=== PATIENT | male | born 2000 | race Caucasian/White ===

== ENCOUNTER 2022-09-15 13:11 | Emergency (ER) | payer OTHER, SELFPAY ==
[2022-09-15 13:32] VITALS: BP 122/97; PULSE 105; RESP 18; TEMP 38.1; O2SAT 100
--- NOTE | 2022-09-15 13:37 | ED.URI ---
HPI - URI/Sore Throat General Chief Complaint: Upper Respiratory Infection Stated Complaint: Sore Throat,Fever,BodyAches Time Seen by Provider: 09/15/22 13:37 Source: patient Mode of arrival: ambulatory Limitations: no limitations History of Present Illness HPI Narrative: 22-year-old male presents with complaint of body aches, headache, fever, fatigue since last night. Denies nausea vomiting diarrhea. No chest pain or shortness of breath. All systems reviewed and negative except as noted above. Related Data Allergies Allergy/AdvReac Type Severity Reaction Status Date / Time No Known Allergies Allergy Unverified 07/09/19 13:53 Review of Systems Review of Systems: CONSTITUTIONAL: Reports fever, chills, or sweats. EYES: Denies visual changes, redness, or discharge. ENT: Denies rhinorrhea, congestion, sore throat, or otalgia. CARDIOVASCULAR: Denies chest pain, palpitations, or edema. RESPIRATORY: Denies cough or dyspnea. GASTROINTESTINAL: Denies abdominal pain, nausea, vomiting, or diarrhea. GENITOURINARY: Denies dysuria or hematuria. SKIN: Denies rash or itching. MUSCULOSKELETAL: Denies back pain, joint pain. Reports myalgia. NEUROLOGIC: reports headache. Denies numbness, or weakness. PSYCHIATRIC: Denies anxiety or depression. All other systems reviewed are negative, except as documented in HPI. PMFSH Comments At time of signature, agree with nursing past medical, surgical, social and family history. There is no relevant family history pertinent to the presenting complaint. Exam Narrative: GENERAL: This is a well-nourished, well-developed patient. Patient ill-appearing but no distress. HEAD: normocephalic, atraumatic. EYES: PERRL. Sclera clear/white. Vision is grossly intact. EARS: External ears normal, auditory canals clear and without drainage, TMs normal without perforation. Hearing grossly intact. NOSE: External nose normal with no obvious nasal discharge, nares without redness, no rhinorrhea. THROAT: Mucous membranes moist, posterior pharynx clear. NECK: Neck supple, non-tender without lymphadenopathy, masses or thyromegaly. CARDIOVASCULAR: Regular rate and rhythm without murmurs, gallops, or rubs. RESPIRATORY: Clear to auscultation. Breath sounds equal bilaterally. No wheezes, rales, or rhonchi. SKIN: warm, Dry, intact with no suspicious lesions or rash, good texture and turgor. NEURO: awake, alert, and oriented to person, place and time. There were no obvious focal neurologic abnormalities. EXTREMITIES: No joint tenderness, effusion, or edema noted. Course Course Level of Care: Express Care Visit Vital Signs Vital signs: Vital Signs Temperature 38.1 C H 09/15/22 13:32 Pulse Rate 105 H 09/15/22 13:32 Respiratory Rate 18 09/15/22 13:32 Blood Pressure 122/97 H 09/15/22 13:32 Pulse Oximetry 100 09/15/22 13:32 Oxygen Delivery Room Air 09/15/22 13:32 Temperature 38.1 C H 09/15/22 13:32 Pulse Rate 105 H 09/15/22 13:32 Respiratory Rate 18 09/15/22 13:32 Blood Pressure 122/97 H 09/15/22 13:32 Pulse Oximetry 100 09/15/22 13:32 Oxygen Delivery Room Air 09/15/22 13:32 Reviewed. Offered antipyretic at [facility] but the patient stated would take when he got home. MDM - URI/Sore Throat MDM Narrative Medical decision making narrative: Patient is aware of diagnosis, understands and agrees to treatment plan. Anticipatory guidance given. Patient agrees to follow-up as directed and is aware of reasons to seek care at the emergency department. Portions of this record may have been created with voice recognition software Differential Diagnosis Differential diagnosis: Likely upper respiratory infection, viral infection and influenza Lab Data Labs: Influenza A Screen Positive Reference Range: Negative Influenza B Screen Negative Reference Range:
== END 2022-09-15 13:52 | disposition home or self-care (01) ==
PROVIDERS: Emergency Provider Nurse Practitioner Family; PCP Physician Assistant
DX: J10.1 Influenza due to other identified influenza virus with other respiratory manifestations (principal)
CPT/HCPCS: 87081; 87804; 87880; 99213; G0463

== ENCOUNTER 2023-11-02 14:57 | Emergency (ER) | payer OTHER, SELFPAY ==
--- NOTE | ~2023-11-02 | CT_ITS ---
EXAMINATION: CT abdomen pelvis w con DATE: 11/02/2023 19:27 INDICATION: Epigastric tenderness TECHNIQUE: Computed tomography (CT) of the abdomen and pelvis was performed with 100 mL Omnipaque-350 intravenous contrast. Automated exposure control and iterative reconstruction technique were employe d. The dose-length product was 722.98 mGy-cm. COMPARISON: None. FINDINGS: Lower thorax: Unremarkable Liver: Normal. Biliary/Gallbladder: Gallbladder is normal. No bile duct dilation. Pancreas: No mass or duct dilation. Spleen: Normal. Adrenals:No mass. Kidneys: No suspicious mass, obstructing stone, or hydronephrosis. GI tract: Very mild distal esophageal and gastric wall edema. No small or large bowel dilation. Loli l appendix. Mesentery/Peritoneum: No ascites, mass, or free air. Retroperitoneum: No mass. Pelvis: Pelvic organs are within normal limits. Soft Tissues: Soft tissues and body wall unremarkable. Bones: No acute osseous finding. IMPRESSION: Mild esophagitis/gastritis. Reviewed, dictated and finalized at location [facility] IMPRESSION: Mild esophagitis/gastritis.
[2023-11-02 15:06] VITALS: BP 150/80; PULSE 87; RESP 17; TEMP 36.7; O2SAT 98
--- NOTE | 2023-11-02 18:05 | ED.GENADULT ---
HPI - General Adult General Chief complaint: Abdominal Pain Stated complaint: BLACK DIARRHEA STOOLS, ABDOMEN PAIN Time Seen by Provider: 11/02/23 17:30 Source: patient Mode of arrival: ambulatory Limitations: no limitations History of Present Illness HPI narrative: This is a 23-year-old male who presents to the ED with chief complaint of upper and generalized abdominal cramping to accompanied by black tar diarrhea for the past 3 days. Reports that this seemed to start after eating [employer] but symptoms have not really improved. Reports pain 2/10 at this time but significantly worse with the eating. Denies fevers, chills, vomiting, chest pain, shortness of breath, urinary problems. Related Data Allergies Allergy/AdvReac Type Severity Reaction Status Date / Time No Known Allergies Allergy Unverified 11/02/23 14:58 Review of Systems Review of Systems: All systems as dictated in HPI Exam Narrative: GENERAL: Well-appearing, well-nourished, and in no acute distress. HEAD: Normocephalic, atraumatic. EYES: PERRLA and EOMI. ENT: Nares clear, no rhinorrhea or epistaxis. Mucous membranes moist. Oropharynx without tonsillar hypertrophy exudate or other lesions. NECK: Supple. No adenopathy or masses. CHEST: No respiratory distress. Clear to auscultation. No wheezes rales or rhonchi HEART: Regular rate and rhythm. No murmur heard. Normal peripheral pulses. ABDOMEN: Mildly tender epigastrium. soft, otherwise nontender, nondistended, normal active bowel sounds. MSK: Normal range of motion. No edema. SKIN: Warm, dry, no rash. NEURO: Alert and oriented x3. No focal deficits. PSYCH: Normal mood and affect. Rectal exam performed with nurse tech string cutter present: Guaiac test negative. No external lesions. No swelling. No tenderness Course Vital Signs Vital signs: Vital Signs Temperature 98.1 F 11/02/23 15:06 Pulse Rate 87 11/02/23 15:06 Respiratory Rate 17 11/02/23 15:06 Blood Pressure 150/80 H 11/02/23 15:06 Pulse Oximetry 98 11/02/23 15:06 Oxygen Delivery Room Air 11/02/23 15:06 Temperature 98.1 F 11/02/23 15:06 Pulse Rate 84 11/02/23 20:10 Respiratory Rate 16 11/02/23 20:10 Blood Pressure 128/86 11/02/23 20:18 Pulse Oximetry 98 11/02/23 20:10 Oxygen Delivery Room Air 11/02/23 15:06 Medical Decision Making [facility] Narrative Medical decision making narrative: This is a 23-year-old male who presents to the ED with chief complaint of upper and lower abdominal cramping completed by Dr. Sorenson with. Seem to start after eating fast food recently. Vitals are normal. Exam shows mild epigastric tenderness. Lab work is grossly unremarkable. Negative lipase. Urinalysis shows 2+ ketones but otherwise intact. Rectal exam shows a negative guaiac test. CT abdomen: Mild esophagitis/gastritis. . Symptoms consistent with gastritis. omeprazole prescription given. GI referral given. We discussed that the bleeding has probably resolved. Return precautions discussed as well. Patient is understanding and agreeable plan for discharge follow-up with specialist/PCP. Vital Signs Vital Signs: Vital Signs Temperature 98.1 F 11/02/23 15:06 Pulse Rate 87 11/02/23 15:06 Respiratory Rate 17 11/02/23 15:06 Blood Pressure 150/80 H 11/02/23 15:06 Pulse Oximetry 98 11/02/23 15:06 Oxygen Delivery Room Air 11/02/23 15:06 Temperature 98.1 F 11/02/23 15:06 Pulse Rate 84 11/02/23 20:10 Respiratory Rate 16 11/02/23 20:10 Blood Pressure 128/86 11/02/23 20:18 Pulse Oximetry 98 11/02/23 20:10 Oxygen Delivery Room Air 11/02/23 15:06 Lab Data 11/02/23 18:24 11/02/23 18:24 Labs: Lab Results 11/02/23 11/02/23 Range/Units 18:24 19:05 WBC 7.8 (4.5-10.0) K/mm3 RBC 5.41 (4.6-6.20) M/mm3 Hgb 15.9 (14.0-18.0) g/dL Hct 47.8 (42.0-52.0) % MCV 88.4 (80-100) fl MCH 29.4 (26-34) pg MCHC 33.3 (32
[2023-11-02 18:43] LABS: Basophils Percent Auto 0.3 % (0.2-1.2); Eosinophils Absolute Auto 0.1 K/mm3 (0-0.3); Eosinophils Percent Auto 0.8 % (0-4.4); Hematocrit 47.8 % (42.0-52.0); Hemoglobin 15.9 g/dL (14.0-18.0); Immature Granulocyte Absolute 0.02 K/mm3 (0.00-0.031); Immature Granulocyte Percent A 0.3 % (0-0.5); Lymphocytes Absolute Auto 1.47 K/mm3 (0.9-3.2); Lymphocytes Percent Auto 18.8 % (18.3-44.2); Mean Corpuscular HGB Conc 33.3 g/dl (32-36); Mean Corpuscular Hemoglobin 29.4 pg (26-34); Mean Corpuscular Volume 88.4 fl (80-100); Mean Platelet Volume 10.5 fl (7.4-10.4); Monocytes Absolute Auto 0.6 K/mm3 (0.1-0.6); Monocytes Percent Auto 7.9 % (2.6-8.5); Neutrophils Absolute Auto 5.7 K/mm3 (1.3-6.7); Neutrophils Percent Auto 71.9 % (45.5-73.1); Platelet Count Result 177 k/mm3 (150-375); Red Blood Count 5.41 M/mm3 (4.6-6.20); Red Cell Distribution Width 12.6 % (11.5-14.5); White Blood Count 7.8 K/mm3 (4.5-10.0)
[2023-11-02 18:46] LABS: Prothrombin Time 13.7 Seconds (11.1-14.7)
[2023-11-02 18:47] LABS: Partial Thromboplastin Time 25.5 SECONDS (22.3-36.8)
[2023-11-02 18:52] LABS: Lactic Acid Reflex 0.9 mmol/L (0.7-2.0)
[2023-11-02 19:02] LABS: Alanine Aminotransferase 26 U/L (6-50); Albumin Level 4.4 g/dL (3.5-5.1); Alkaline Phosphatase 88 U/L (38-126); Anion Gap 8 mmol/L (8-16); Aspartate Amino Transferase 29 U/L (17-59); Bilirubin,Total 0.5 mg/dL (0.2-1.3); Blood Urea Nitrogen 11 mg/dL (9-20); Calcium 9.2 mg/dL (8.4-10.2); Carbon Dioxide 26 mmol/L (22-30); Chloride 104 mmol/L (98-107); Estimated CRCL calculation 144 ml/min; Estimated Glomerular Filt Rate > 60; Glucose 88 mg/dL (65-110); Lipase 43 U/L (23-300); Potassium 4.4 mmol/L (3.4-5.0); Sodium 138 mmol/L (137-145)
[2023-11-02 19:53] LABS: Appearance Urine Clear (Clear); Bilirubin Urine Negative (Negative); Blood Urine Negative (Negative); Color Urine Yellow (Yellow); Glucose Urine UA Negative (Negative); Ketones Urine 2+ mg/dL (Negative); Leukocyte Esterase Ur Negative LEU/UL (Negative); Nitrate Urine Negative (Negative); Protein Urine Negative (Negative); Specific Grav Ur 1.027 (1.001-1.035); Urobilinogen Urine 0.2 mg/dL (<2.0); pH Urine 5.5 (5.0-9.0)
[2023-11-02 19:57] LABS: Add Urine Microscopic? NO
[2023-11-02 20:10] VITALS: PULSE 84; RESP 16; O2SAT 98
[2023-11-02 20:18] VITALS: BP 128/86
== END 2023-11-02 20:18 | disposition home or self-care (01) ==
PROVIDERS: Emergency Provider Physician Assistant; PCP Physician Assistant
DX: K29.70 Gastritis, unspecified, without bleeding (principal)
CPT/HCPCS: 36415; 74177; 80053; 81003; 82248; 83605; 83690; 85025; 85610; 85730; 99284; Q9967

== ENCOUNTER 2024-10-08 16:08 | Emergency (ER) | payer OTHER, SELFPAY ==
[2024-10-08 16:21] VITALS: BP 151/90; PULSE 78; RESP 16; TEMP 36.8; O2SAT 100
[2024-10-08 16:24] VITALS: BP 151/90; PULSE 78; RESP 16; TEMP 36.8; O2SAT 100
--- NOTE | 2024-10-08 16:46 | ED.SKABFB ---
HPI - Skin/Abscess/Foreign Bdy General Chief complaint: Skin/Abscess/Foreign Body Stated complaint: Infected Tattoo Time Seen by Provider: 10/08/24 16:46 Source: patient, RN notes reviewed and old records reviewed Mode of arrival: ambulatory Limitations: no limitations History of Present Illness HPI narrative: 24-year-old male to Express Care for complaint concern for infection on the right forearm. Patient states he received a new tattoo approximately 1 week ago and reports this area has become red and itchy over the past 2 days. Patient denies fever, numbness, joint pain, shortness of breath. Patient resting in exam room in no acute distress. Related Data Allergies Allergy/AdvReac Type Severity Reaction Status Date / Time No Known Allergies Allergy Verified 10/08/24 16:23 Review of Systems Review of Systems: All systems reviewed & are unremarkable except as noted in HPI and below Constitutional: Constitutional: Reports no additional constitutional complaints Eyes: Eyes: Reports no additional eye complaints ENT: Reports system reviewed and no additional complaints, except as documented Cardiovascular: Cardiovascular: Reports no additional cardiovascular complaints, Denies chest pain and Denies dyspnea Respiratory: Respiratory: Reports no additional respiratory complaints, Denies cough and Denies dyspnea Musculoskeletal: Musculoskeletal: Reports no additional musculoskeletal complaints Integumentary/Breasts: Skin/Breast: Reports as per HPI, Reports erythema and Reports rash Neurologic: Reports system reviewed and no additional complaints, except as documented Psychiatric: Psychiatric: Reports no additional psychiatric complaints PMFSH Comments At the time of my signature, I reviewed and agree with the nursing past medical, surgical, social, and family history. There is no relevant family history pertinent to the patient complaint. Exam Const: General: cooperative, healthy appearing, comfortable, no acute distress, alert and well nourished Nutritional Appearance: well nourished Orientation/consciousness: patient oriented x3 Limitations: no limitations HENMT: Head: normal to inspection Ears: external ears normal Face/Nose/Sinus: Normal external nose present, Normal nares present, normal facial exam, No erythema and No edema Face and sinus: normal facial exam, no erythema and no edema Mouth: Yes Normal oral and palatal mucosa present Eyes: General: appearance normal, both eyes and all related structures Neck: Neck: normal visual inspection, full ROM and no meningeal signs Chest: Chest palpation & inspection: normal inspection of the chest Resp: Effort & Inspection: normal respiratory effort and able to speak in complete sentences Cardio: Jugular venous distension: no JVD Rate: regular rate Rhythm: regular rhythm Back/Spine/Pelvis: Cervical Spine: cervical ROM normal Skin: General skin exam: normal color and turgor normal Rashes: rashes noted patches right forearm Neuro: General: patient oriented x3, gait normal, moves all extremities and no meningeal signs Speech: normal speech Gait exam (Neuro): Normal gait present Extrem: General: normal to inspection, full ROM and capillary refill normal Psych: Appearance: grossly normal and well kempt Course Course Emergency Course: Some parts of this dictation were generated by voice recognition software and may contain typographical and/or grammatical inaccuracies. Level of Care: Express Care Visit Vital Signs Vital signs: Vital Signs Temperature 36.8 C 10/08/24 16:21 Pulse Rate 78 10/08/24 16:21 Respiratory Rate 16 10/08/24 16:21 Blood Pressure 151/90 H 10/08/24 16:21 Pulse Oximetry 100 10/08/24 16:21 Temperature 36.8 C 10/08/24 16:24 Pulse Rate 78 10/08/24 16:24 Respiratory Rate 16 10/08/24 16:24 Blood Pressure 151/90 H 10/08/24 16:24 Pulse Oximetry 100 10/08/24 16:24 reviewed MDM - Skin/Abscess/Foreign Bdy MDM Narrative Medical decision making narrative: 24-year-old male to Express Care for complaint concern for infection on the right forearm. Patient states he received a new tattoo approximately 1 week ago and reports this area has become red and itchy over the past 2 days. Patient denies fever, numbness, joint pain, shortness of breath. Patient resting in exam room in no acute distress. On exam, right forearm with diffuse patchy erythematous raised rash. Consistent with contact dermatitis. Patient is sitting comfortably in exam room nontoxic in appearance. Patient appropriate for outpatient treatment and follow-up. Discharge instructions reviewed with patient, as well as provided in writing per nursing staff. The instructions also include specific and strict return/GO TO THE ER as well as f/u information. All questions have been answered, and the patient deny any further questions with discharge and discharge plan. Some parts of this dictation were generated by voice recognition software and may contain typographical and/or grammatical inaccuracies. Differential Diagnosis Differential diagnosis: Likely abscess of skin or subcutaneous tissue, viral exanthem, dermatophytosis, urticaria, herpes zoster, allergic reaction to drug, cellulitis, eczema, insect bites, impetigo and contact dermatitis Discharge Plan Discharge Clinical Impression: Contact dermatitis Patient Disposition: Home, Self-Care Condition: Stable Instructions: Contact Dermatitis (ED) Additional Instructions: Apply triamcinolone cream as directed Take prednisone as directed Avoid hot showers May apply calamine lotion to rash Avoid scratching and this can cause a secondary infection. May take benadryl 25-50mg every 6 hours as needed for itching. Follow up with your PCP in 3-5 days if symptoms persist or sooner if they worsen Go to the Emergency Room if symptoms worsen- fever, rash spreading with treatment, shortness of breath, tongue swelling, drooling, or chest pain Patient Language: [place] Prescriptions: New triamcinolone acetonide 0.1 % cream 1 applic topical TID Qty: 30 0RF prednisone 20 mg tablet See Rx Instructions .ROUTE .COMPLEX Qty: 9 0RF Rx Instructions: Take 40mg x3 days, 20mg x3 days Follow-up/Referrals: Jitendra,KAYDEN Lemon [Primary Care Provider] -
== END 2024-10-08 17:06 | disposition home or self-care (01) ==
PROVIDERS: Emergency Provider Nurse Practitioner Family; PCP Physician Assistant
DX: L25.9 Unspecified contact dermatitis, unspecified cause (principal)
CPT/HCPCS: 99213; G0463